=== PATIENT | female | born 1945 | race Caucasian/White ===

== ENCOUNTER 2020-12-19 07:27 | Day surgery (SDC) | payer MEDICARE, OTHER ==
[~2020-12-19] VITALS: Ht 152.4 cm; Wt 56.4 kg
[2020-12-19] MEDS ORDERED: CHLORHEXIDINE 15 ML UDC MM ONE (08:00)
[2020-12-19 08:14] VITALS: BP 91/58
[2020-12-19] MEDS ORDERED: LACTATED RINGERS 1,000 ML IV SCH (08:30)
[2020-12-19] MEDS ORDERED: PLEASE ENTER HEIGHT AND WEIGHT MC SCH (08:30)
[2020-12-19] MEDS ORDERED: FURO40TA6 PO (08:42)
[2020-12-19] MEDS ORDERED: CLON0.5T PO (08:42)
[2020-12-19] MEDS ORDERED: DICL100T PO (08:42)
[2020-12-19] MEDS ORDERED: HYDR2TAB29 PO (08:42)
[2020-12-19] MEDS ORDERED: ATOR20TA37 PO (08:42)
[2020-12-19] MEDS ORDERED: GABA600T7 PO (08:42)
[2020-12-19] MEDS ORDERED: LISI10TA PO (08:42)
[2020-12-19] MEDS ORDERED: CELE200C PO (08:42)
[2020-12-19] MEDS ORDERED: SPIR25TA PO (08:42)
[2020-12-19] MEDS ORDERED: FENTANYL PF 250 MCG/5ML ONE (08:50)
[2020-12-19] MEDS ORDERED: MIDAZOLAM 1 MG/ML, 2ML ONE (08:50)
[2020-12-19] MEDS ORDERED: BUPIVACAINE/PF 0.5% ONE (10:03)
[2020-12-19] MEDS ORDERED: LIDOCAINE/PF 1%, 30ML ONE ×2 (10:04→10:25)
[2020-12-19] MEDS ORDERED: EPINEPHRINE 1 MG/ML, 1ML ONE (10:04)
[2020-12-19] MEDS ORDERED: DEXAMETHASONE 4 MG/ML, 1ML ONE (10:24)
[2020-12-19] MEDS ORDERED: GLYCOPYRROLATE 0.2MG/1ML, 5ML ONE (10:24)
[2020-12-19] MEDS ORDERED: NEOSTIGMINE 1 MG/ML, 10ML ONE (10:24)
[2020-12-19] MEDS ORDERED: EPHEDRINE 50 MG/ML, 1ML ONE (10:24)
[2020-12-19] MEDS ORDERED: PHENYLEPHRINE 10 MG/ML ONE (10:24)
[2020-12-19] MEDS ORDERED: ROCURONIUM 10 MG/ML,10ML ONE (10:24)
[2020-12-19] MEDS ORDERED: ONDANSETRON 2MG/ML, 2ML ONE (10:24)
[2020-12-19] MEDS ORDERED: CEFAZOLIN 1,000 MG ONE (10:24)
[2020-12-19] MEDS ORDERED: PROPOFOL 10 MG/ML, 50ML ONE (10:24)
[2020-12-19] MEDS ORDERED: FENTANYL PF 100 MCG/2ML IV PRN (11:30)
[2020-12-19] MEDS ORDERED: METOCLOPRAMIDE 5 MG/ML, 2ML IVPush PRN (11:30)
[2020-12-19] MEDS ORDERED: METHOCARBAMOL 1,000 MG in DEXTROSE 5% 100 ML IV PRN (11:30)
[2020-12-19] MEDS ORDERED: LABETALOL 5MG/ML, 20ML IV PRN (11:30)
[2020-12-19] MEDS ORDERED: PROMETHAZINE 25 MG/ML, 1ML IVPush PRN (11:30)
[2020-12-19] MEDS ORDERED: HALOPERIDOL 5 MG/ML IV PRN (11:30)
[2020-12-19] MEDS ORDERED: ACETAMINOPHEN 325 MG TABLET PO PRN (11:30)
[2020-12-19] MEDS ORDERED: METOPROLOL 1 MG/ML, 5ML IV PRN (11:30)
[2020-12-19] MEDS ORDERED: LORazepam 2 MG/ML, 1ML IVPush PRN (11:30)
[2020-12-19] MEDS ORDERED: DIPHENHYDRAMINE 50 MG/ML, 1ML IVPush PRN (11:30)
[2020-12-19] MEDS ORDERED: ALBUTEROL/IPRATROPIUM 2.5MG/0.5MG, 3 ML NPPB PRN (11:30)
[2020-12-19] MEDS ORDERED: hydrALAzine 20 MG/ML, 1ML IV PRN (11:30)
[2020-12-19] MEDS ORDERED: EPHEDRINE 50 MG/ML, 1ML IVPush PRN (11:30)
[2020-12-19] MEDS ORDERED: HYDROmorphone 2MG TABLET PO PRN (11:30)
[2020-12-19] MEDS ORDERED: ALBUTEROL SULFATE 2.5 MG/3 ML NPPB PRN (11:30)
[2020-12-19] MEDS ORDERED: ONDANSETRON 2MG/ML, 2ML IVPush PRN (11:30)
[2020-12-19] MEDS ORDERED: HYDROmorphone 1 MG/ML, 1ML INJ ONE (12:50)
[2020-12-19] MEDS ORDERED: PROMETHAZINE 25 MG/ML, 1ML ONE (12:54)
[2020-12-19] MEDS: HYDROmorphone 1 MG/ML, 1ML INJ IVPush PRN ×2 (13:00→13:05)
[2020-12-19] MEDS ORDERED: OMNIPAQUE 180 MG/ML, 20ML VIAL ONE (13:34)
== END 2020-12-19 16:55 | disposition home or self-care (01) ==
LOC: OUT 07:27
PROVIDERS: ATTEND Orthopaedic Surgery Orthopaedic Surgery of the Spine
DX: M80.08XA Age-related osteoporosis with current pathological fracture, vertebra(e), initial encounter for fracture (principal); J44.9 Chronic obstructive pulmonary disease, unspecified; I50.32 Chronic diastolic (congestive) heart failure; I11.0 Hypertensive heart disease with heart failure; E78.5 Hyperlipidemia, unspecified; Z87.891 Personal history of nicotine dependence; Z88.5 Allergy status to narcotic agent; Z88.6 Allergy status to analgesic agent; Z88.8 Allergy status to other drugs, medicaments and biological substances; Z99.81 Dependence on supplemental oxygen; Z98.890 Other specified postprocedural states
CPT/HCPCS: 22513; 72072; 88307; 88311; 95938; 95941; C1713; J0171; J0690; J1100; J1170; J2250; J2370; J2405; J2550; J2704; J2710; J2800; J3010; J7120; Q9965